=== PATIENT | female | born 1955 | race Caucasian/White ===

== ENCOUNTER 2018-04-06 11:43 | Emergency (ER) | payer OTHER, MEDICARE ==
[2018-04-06] MEDS: CEFTRIAXONE 1 GM/50 ML (PMX) 50 ML IVPB (13:55)
[2018-04-06] MEDS: METHYLPREDNISOLONE 125 MG INJ IV (13:55)
[2018-04-06] MEDS: KETOROLAC 15 MG INJ IV (15:13)
== END 2018-04-06 16:39 | disposition home or self-care (01) ==
LOC: FTE 11:43
DX: L03.116 Cellulitis of left lower limb (principal); I10 Essential (primary) hypertension; F17.210 Nicotine dependence, cigarettes, uncomplicated
CPT/HCPCS: 93970; 96365; 96375; 99285-25